=== PATIENT | female | born 1995 | race Two or more races ===

== ENCOUNTER 2024-12-30 09:18 | Emergency (ER) | payer OTHER ==
[~2024-12-30] VITALS: Ht 154.9 cm; Wt 74.8 kg
[2024-12-30] MEDS ORDERED: ONDANSETRON HCL/PF 4 MG/2 ML VIAL ONE (09:51)
[2024-12-30] MEDS ORDERED: MORPHINE SULFATE INJ 4 MG/ML DISP.SYRIN ONE (09:51)
[2024-12-30 09:58] LABS: WHITE BLOOD COUNT (AUTO) 9.3 K/uL (4.3-11.0)
[2024-12-30 10:07] LABS: CALCIUM, SERUM 9.3 mg/dL (8.5-10.1); CREATININE 1.0 mg/dL (0.6-1.3); SODIUM SERUM 136.0 mmol/L (136-145); UREA NITROGEN, BLOOD 10.0 mg/dL (7-18)
[2024-12-30 10:09] LABS: PLATELET COUNT (AUTO) 294 K/uL (150-450); RED BLOOD CELL COUNT(AUTO) 5.09 MIL/uL (4.0-5.2); RED CELL DISTRIBUTION WIDTH 12.7 % (11.5-15.0)
[2024-12-30] MEDS: IV NS 0.9% 1,000 ML BAG IV ONE (10:10)
[2024-12-30] MEDS: MORPHINE SULFATE INJ 2 MG/ML DISP.SYRIN IV ONE (10:10)
[2024-12-30] MEDS: ONDANSETRON HCL/PF 4 MG/2 ML VIAL IVP ONE (10:11)
[2024-12-30 10:14] LABS: ASPARTATE AMINOTRANSFERASE 12.0 U/L (15-37); TOTAL PROTEIN, SERUM 8.5 g/dL (6.4-8.2)
[2024-12-30 10:44] LABS: PREGNANCY TEST URINE QUAL NEGATIVE (NEGATIVE)
[2024-12-30 11:28] LABS: APPEARANCE,URINE CLEAR (CLEAR); BLOOD, URINE Moderate Ery/uL (NEGATIVE); LEUKOCYTE ESTERASE ,URINE Negative (NEGATIVE); UGLUCOSE Negative (NEGATIVE)
[2024-12-30 11:40] LABS: NITRITE, URINE NEGATIVE (NEGATIVE)
[2024-12-30 12:33] LABS: ADD URINE CULTURE NO; SQUAMOUS EPITHELIAL CELL,UR Few /HPF (None Seen)
[2024-12-30] MEDS ORDERED: HYDR-4303 PO (14:32)
[2024-12-30] MEDS ORDERED: IBUP-1490 PO (14:32)
[2024-12-30] MEDS ORDERED: KETOROLAC TROMETHAMINE INJ 30 MG/ML VIAL ONE (14:37)
[2024-12-30] MEDS: KETOROLAC TROMETHAMINE INJ 30 MG/ML VIAL IV ONE (14:41)
[2024-12-30 15:10] VITALS: BP 130/90; TEMP 98.5; O2SAT 97
== END 2024-12-30 14:20 | disposition home or self-care (01) ==
LOC: ER 09:25
DX: N13.2 Hydronephrosis with renal and ureteral calculous obstruction (principal); R11.10 Vomiting, unspecified
CPT/HCPCS: 99285; 74176; 96374; 96375; 96361; 85025; 80048; 83690; 80076; 84703; 81001; 36415; J1885; J2270; J2405; J7030; A4223